=== PATIENT | female | born 1990 | race Asian ===

== ENCOUNTER → 2016-06-06 | Outpatient (CLI) | payer OTHER ==
--- NOTE | ~2016-06-06 | CT71 ---
[facility] A Service of [facility] & [facility] RADIOLOGY TEXT RESULTS PATIENT: LIZZETH QUIROZ [facility] [birth year] UNIT #: [id number] AGE: [address]: ANN VELASQUEZ APRN SEX: F ORDER DR: [id number] [facility] [address] [place], [place] [address] [id number] O MR#: [id number] Acc #: [id number] NAME: LIZZETH QUIROZ : 1990 SEX: F STUDY DATE/TIME: 06/06/2016 17:30 UNIT: [facility] ROOM: STUDY DESCRIPTION: CT Head Wo Contrast Attending Physician: Ann Velasquez A.P.R.N. Referring Physician: Ann Velasquez A.P.R.N. Ordering Physician: Ann Velasquez A.P.R.N. Primary Care Physician: Ann Velasquez A.P.R.N. MEDICAL IMAGING REPORT This report is preliminary unless electronic signature is present EXAM CT of the head without contrast performed on 06/06/2016. HISTORY 25-year-old female with severe headache. TECHNIQUE This CT exam was performed with one or more of the following radiation dose reduction techniques: Automatic exposure control, adjustment of mA and/or kV according to patient size, and iterative reconstruction. FINDINGS In comparison to the previous exam of 03/16/2014, there has been no change in the postsurgical findings from a suboccipital craniectomy. Surgical clips are present in the midline, adjacent to the vermis. The visualized mastoid air cells and middle ear are clear bilaterally. The remaining osseous skull is intact. No midline shift, mass effect or acute hemorrhage is seen. 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 IMPRESSION Stable exam since 03/16/2014, with postsurgical findings from a suboccipital craniectomy in the midline posterior fossa. No acute abnormality seen. Dictated by... Eliot Giron M.D. THIS IS AN ELECTRONICALLY VERIFIED REPORT Eliot Giron M.D. at 06/07/2016 7:05 PM RP/psc TD: 06/07/2016 00:47 [facility] A Service of [facility] RADIOLOGY TEXT RESULTS PATIENT: LIZZETH QUIROZ LOCATION: [facility] : 86 UNIT #: [id number] AGE: [address]: ANN VELASQUEZ APRN SEX: F ORDER DR: JOB #: [id number] MEDICAL IMAGING REPORT COPY
== END | disposition home or self-care (01) ==
LOC: CCAT 17:06
DX: I67.1 Cerebral aneurysm, nonruptured (principal); Z98.890 Other specified postprocedural states
CPT/HCPCS: 70450